=== PATIENT | male | born 1980 | race Caucasian/White ===

== ENCOUNTER 2024-05-17 18:56 | Emergency (ER) | payer OTHER, SELFPAY ==
[2024-05-17 19:04] VITALS: BP 116/79; PULSE 119; TEMP 37.2; O2SAT 99; BMI 19.6
--- NOTE | 2024-05-17 19:26 | ED.NAVMDI1 ---
HPI - Nausea/Vomiting/Diarrhea General Chief complaint: Nausea/Vomiting/Diarrhea Stated complaint: UNABLE TO KEEP ANYTHING DOWN Time Seen by Provider: 05/17/24 19:21 Source: patient Mode of arrival: walk-in Limitations: no limitations History of Present Illness HPI Narrative: recurrent vomiting and diarrhea since about 1AM. No blood in diarrhea or hematemesis. Abdomen feels like someone is squeezing it. No fever. Light headed. no chest pain or dyspnea. Related Data Home Medications ?Medication ?Instructions ?Recorded ?Confirmed buspirone 15 mg tablet 15 mg PO TID 05/17/24 05/17/24 hydroxyzine HCl 50 mg tablet 50 mg PO TID 05/17/24 05/17/24 trazodone 100 mg tablet 200 mg PO DAILY 05/17/24 05/17/24 Allergies Allergy/AdvReac Type Severity Reaction Status Date / Time haloperidol (From Haldol) AdvReac Anxiety Verified 05/17/24 19:08 metoclopramide (From Reglan) AdvReac Anxiety Verified 05/17/24 19:08 Review of Systems ROS Status of ROS 10 or more systems reviewed and unremarkable except as noted in history and below PFSH PFSH Social History Little interest or pleasure in doing things: not at all Feeling down, depressed, or hopeless: not at all Exam Constitutional Vital Signs, click to edit/add: Last Vital Signs Temp 98.9 F 05/17/24 19:04 Pulse 86 05/17/24 21:44 Resp 16 05/17/24 21:44 BP 112/66 05/17/24 21:44 Pulse Ox 100 05/17/24 21:44 O2 Del Method Room Air 05/17/24 21:44 Common normals: no apparent distress, average body habitus, oriented x3, no limitations, healthy appearing and alert [facility] Common normals: normocephalic and head/scalp atraumatic Eye Common normals: PERRL and EOMs intact bilaterally Respiratory Common normals: normal respiratory effort, no retractions, no use of accessory muscles and clear to auscultation bilaterally Cardio Common normals: S1 normal heart sound and S2 normal heart sound Rate: tachycardic GI Common normals: Normal to inspection, nondistended, normoactive bowel sounds present, soft to palpation and non-tender Extremity Common normals: normal to inspection and full ROM Neuro Common normals: oriented x3, CN's II-XII intact bilaterally, moves all extremities and no focal motor deficits Psych Appearance: grossly normal Course Vital Signs Vital signs: Vital Signs Temperature 98.9 F 05/17/24 19:04 Pulse Rate 119 H 05/17/24 19:04 Respiratory Rate 16 05/17/24 19:04 Blood Pressure 116/79 05/17/24 19:04 Pulse Oximetry 99 05/17/24 19:04 Oxygen Delivery Method Room Air 05/17/24 19:04 Temperature 98.9 F 05/17/24 19:04 Pulse Rate 86 05/17/24 21:44 Respiratory Rate 16 05/17/24 21:44 Blood Pressure 112/66 05/17/24 21:44 Pulse Oximetry 100 05/17/24 21:44 Oxygen Delivery Method Room Air 05/17/24 21:44 MDM - Nausea/Vomiting/Diarrhea MDM Narrative Medical decision making narrative: patient presents with recurrent vomiting and diarrhea. Nausea controlled with zofran and patient able to tolerate PO fluids. He is feeling better after hydration. No pain at this time. Improved overall and discharged home with immodium and zofran Lab Data Labs: Lab Results 05/17/24 05/17/24 Range/Units 19:20 20:50 WBC 14.3 H (4.0-11.0) 10^3/uL RBC 5.53 (4.70-6.10) 10^6/uL Hgb 15.9 (14.0-18.0) g/dL Hct 46.8 (42.0-54.0) % MCV 84.6 (80.0-94.0) fL MCH 28.8 (25.9-34.0) pg MCHC 34.0 (29.9-35.2) g/dL RDW 12.6 (11.0-15.0) % Plt Count 270 (150-450) 10^3/uL MPV 10.5 (9.5-13.5) fL Neut % (Auto) 88.5 H (43.0-75.0) % Lymph % (Auto) 5.2 L (20.5-60.0) % Cochran % (Auto) 5.8 (1.7-12.0) % Eos % (Auto) 0.1 L (0.9-7.0) % Baso % (Auto) 0.1 L (0.2-2.0) % Neut # (Auto) 12.6 H (1.4-6.5) 10^3/uL Lymph # (Auto) 0.8 L (1.2-3.8) 10^3/uL Cochran # (Auto) 0.8 (0.3-0.8) 10^3/uL Eos # (Auto) 0.0 (0.0-0.7) 10^3/uL Baso # (Auto) 0.0 (0.0-0.1) 10^3/uL Abs Immat Gran (auto) 0.05 H (0.00-0.03) 10^3/uL Imm/Tot Granulo (auto) 0.3 (0.0-0.5) % Sodium 140 (136-145) mmol/L Potassium 4.4 (3.5-5.1) mmol/L Chloride 99 (98-107) mmol/L Carbon Dioxide 29.5 (21.0-32.0) mmol/L Anion Gap 15.9 BUN 21.0 H (7.0-18.0) mg/dL Creatinine 1.28 (0.70-1.30) mg/dL Est GFR ( Amer) >60 (>=60 mL/min/1.73m^2) Est GFR (Non-Af Amer) >60 (>=60 mL/min/1.73m^2) BUN/Creatinine Ratio 16.4 Glucose 117 H (74-106) mg/dL Lactate 2.0 (0.4-2.0) mmol/L Calcium 9.5 (8.5-10.1) mg/dL Total Bilirubin 1.2 H (0.2-1.0) mg/dL AST 20 (15-37) U/L ALT 17 (16-63) U/L Alkaline Phosphatase 105 (46-116) U/L Total Protein 7.2 (6.4-8.2) g/dL Albumin 4.1 (3.4-5.0) g/dL Globulin 3.1 g/dL Albumin/Globulin Ratio 1.3 Urine Color Dk yellow (YELLOW) Urine Clarity Clear (CLEAR) Urine pH 8.0 (5.0-9.0) Ur Specific Barry 1.015 (1.005-1.025) Urine Protein 30 A (NEG/TRACE) mg/dL Urine Glucose (UA) Negative (NEGATIVE) mg/dL Urine Ketones 15 A (NEGATIVE) mg/dL Urine Occult Blood Negative (NEGATIVE) Urine Nitrite Negative (NEGATIVE) Urine Bilirubin Negative (NEGATIVE) Urine Urobilinogen 0.2 (0.2-1.0) EU/dL Ur Leukocyte Esterase Trace A (NEGATIVE) Urine RBC 0-2 (0-2) #/HPF Urine WBC 0-2 A (NONE SEEN) #/HPF Ur Squamous Epith Cells Rare (NONE/RARE) #/LPF Urine Crystals None seen (None Seen) #/HPF Urine Bacteria Trace A (NONE SEEN) #/HPF Urine Casts None seen (NONE SEEN) #/LPF Urine Mucus None seen (NONE SEEN) Ur Culture Indicated? No Discharge Plan Discharge Chief Complaint: Nausea/Vomiting/Diarrhea Clinical Impression: Gastroenteritis Patient Disposition: Home, Self-Care Condition: Good Mode of Transportation: Private Vehicle Prescriptions / Home Meds: No Action buspirone 15 mg tablet 15 mg PO TID hydroxyzine HCl 50 mg tablet 50 mg PO TID trazodone 100 mg tablet 200 mg PO DAILY Rx Instructions: HS Print Language: Georgian Instructions: Gastroenteritis (ED) Additional Instructions: follow up with your doctor in 2-3 days for recheck Referrals: Physician,Non-Staff, MD [Primary Care Provider] - 1 week Discharge Date/Time: 05/17/24 21:46
[2024-05-17] MEDS: ONDANSETRON PF 4 MG/2 ML VIAL IV (19:38)
[2024-05-17] MEDS: 0.9 % SODIUM CHLORIDE 1,000 ML 999 ML IV (19:38)
[2024-05-17 19:39] LABS: Basophils Percent Auto 0.1 % (0.2-2.0); Eosinophils Percent Auto 0.1 % (0.9-7.0); Hematocrit 46.8 % (42.0-54.0); Hemoglobin 15.9 g/dL (14.0-18.0); Immature Granulocytes Abs Auto 0.05 10^3/uL (0.00-0.03); Immature Granulocytes Pct Auto 0.3 % (0.0-0.5); Lymphocytes Absolute Auto 0.8 10^3/uL (1.2-3.8); Lymphocytes Percent Auto 5.2 % (20.5-60.0); Mean Corpuscular Hemoglobin 28.8 pg (25.9-34.0); Mean Corpuscular Volume 84.6 fL (80.0-94.0); Mean Platelet Volume 10.5 fL (9.5-13.5); Monocytes Absolute Auto 0.8 10^3/uL (0.3-0.8); Monocytes Percent Auto 5.8 % (1.7-12.0); Neutrophils Absolute Auto 12.6 10^3/uL (1.4-6.5); Neutrophils Percent Auto 88.5 % (43.0-75.0); Platelet Count 270 10^3/uL (150-450); Red Blood Count 5.53 10^6/uL (4.70-6.10); Red Cell Distribution Width 12.6 % (11.0-15.0); White Blood Count 14.3 10^3/uL (4.0-11.0)
[2024-05-17 19:51] LABS: Alanine Aminotransferase 17 U/L (16-63); Albumin Globulin Ratio 1.3; Albumin Level 4.1 g/dL (3.4-5.0); Alkaline Phosphatase 105 U/L (46-116); Anion Gap 15.9; Aspartate Amino Transferase 20 U/L (15-37); BUN Creatinine Ratio 16.4; Bilirubin Total 1.2 mg/dL (0.2-1.0); Calcium 9.5 mg/dL (8.5-10.1); Carbon Dioxide 29.5 mmol/L (21.0-32.0); Chloride 99 mmol/L (98-107); Estimated GFR (African America >60 (>=60 mL/min/1.73m^2); Estimated GFR (Non-African Ame >60 (>=60 mL/min/1.73m^2); Globulin 3.1 g/dL; Glucose 117 mg/dL (74-106); Potassium 4.4 mmol/L (3.5-5.1); Sodium 140 mmol/L (136-145); Total Protein 7.2 g/dL (6.4-8.2)
[2024-05-17 20:49] VITALS: BP 103/65; PULSE 96; O2SAT 98
[2024-05-17 20:59] LABS: Bilirubin Urine NEGATIVE (NEGATIVE); Blood Urine NEGATIVE (NEGATIVE); Clarity Urine CLEAR (CLEAR); Glucose Urine UA NEGATIVE (NEGATIVE); Ketones Urine 15 mg/dL (NEGATIVE); Leukocyte Esterase Urine TRACE (NEGATIVE); Nitrite Urine NEGATIVE (NEGATIVE); Protein Urine 30 mg/dL (NEG/TRACE); Specific Gravity Urine 1.015 (1.005-1.025); Urobilinogen Urine 0.2 EU/dL (0.2-1.0)
[2024-05-17 21:00] LABS: Color Urine DK YELLOW (YELLOW)
[2024-05-17 21:08] LABS: Bacteria Urine TRACE #/HPF (NONE SEEN); Cast Seen? NONE SEEN #/LPF (NONE SEEN); Crystals Seen? None Seen #/HPF (None Seen); Mucus Urine NONE SEEN (NONE SEEN); RBC Urine 0-2 #/HPF (0-2); Squamous Epithelial Cell Urine RARE #/LPF (NONE/RARE); Urine Culture Indicated NO; WBC Urine 0-2 #/HPF (NONE SEEN)
[2024-05-17] MEDS: ONDANSETRON 4 MG RAPDIS TABLET SL (21:40)
[2024-05-17] MEDS: DIPHENOXYLATE HCL 2.5 MG/ATROPINE 0.025 MG TABLET 2 TAB PO (21:40)
[2024-05-17 21:44] VITALS: BP 112/66; PULSE 86; O2SAT 100
== END 2024-05-17 21:46 | disposition home or self-care (01) ==
PROVIDERS: Emergency Provider Internal Medicine
DX: K52.9 Noninfective gastroenteritis and colitis, unspecified (principal)
CPT/HCPCS: 36415; 80053; 81001; 83605; 85025; 96361; 96374; 99285; J2405; Q0162